=== PATIENT | female | born 1970 | race Caucasian/White ===

== ENCOUNTER → 2017-10-24 10:50 | Outpatient (CLI) | payer MEDICAID, SELFPAY ==
--- NOTE | 2017-10-24 10:58 | MRI_ITS ---
STUDY: MRI BRAIN WITH AND WITHOUT CONTRAST REASON FOR EXAM: Female, 47 years old. H/A,DIZZINESS, PREV DIAGNOSIS OF MENINGIOMAS, PREV STROKE W/ RT SIDE PARALYSIS RESOLVED. TECHNIQUE: Standardized multiplanar fat and water weighted pulse sequences were obtained. 10 ml of Gadavist contrast material was administered intravenously for the contrast portion of the examination. COMPARISON: March 21, 2017 FINDINGS: Normal size of the ventricles and extra-axial spaces for the patient's age. There are a limited number of small white matter hyperintensities, distributed throughout the deep white matter tracts of the cerebral hemispheres, consistent with mild chronic white matter ischemic changes. The bilateral internal auditory canals are unremarkable without demonstrated enhancing lesions. Normal bilateral basal ganglia. Normal thalami. There is no extra-axial fluid accumulation. Normal flow voids within the major intracranial circulation suggesting patency by spin echo criteria. Normal sella turcica, pituitary gland, infundibular stalk, optic chiasm and hypothalamus. Normal tectal plate and pineal gland. Normal midbrain, lisseth and medulla. Again noted is the 2.3 x 2.1 cm left inferior tentorial enhancing lesion without change since the prior examination. There is no underlying cerebellar edema. The previously noted small left supraorbital enhancing lesion is not seen on this examination. There is a stable 5 mm left frontal convexity enhancing lesion. Normal basal cisterns. Normal bilateral temporal bones. Normal bilateral internal auditory canals. MRI/Brain W/WO Contrast IMPRESSION: Stable left tentorial and left frontal lesions, most compatible with meningiomata. No acute intracranial abnormality. Electronically Signed: Bran Rajput MD at 12:20 EST Tel , Service support ,
== END ==
PROVIDERS: Family Provider Family Medicine; PCP Family Medicine; Visit Provider Nurse Practitioner Acute Care
DX: R51 Headache (principal); R42 Dizziness and giddiness; H93.8X3 Other specified disorders of ear, bilateral
CPT/HCPCS: 70553; A9585